=== PATIENT | female | born 1975 | race Caucasian/White ===

== ENCOUNTER 2024-07-26 04:04 | Emergency (ER) | payer BC, SELFPAY ==
[2024-07-26] VITALS (10 sets, daily range): BP systolic 102–145; BP diastolic 65–87; BMI 26.6
[2024-07-26 04:36] LABS: % Basophils 0.6 % (0-2); % Eosinophils 1.6 % (0-6); % Lymphocytes 36.8 % (20.5-51.1); % Monocytes 6.2 % (1.7-9.3); % Neutrophils 54.8 % (42.2-75.2); Absolute Eosinophils 0.1 10^3/uL (0-0.7); Absolute Lymphocytes 2.6 10^3/uL (1.2-3.4); Absolute Monocytes 0.4 10^3/uL (0.1-0.6); Absolute Neutrophils 3.9 10^3/uL (1.4-6.5); Hematocrit 39.5 % (37.0-47.0); Hemoglobin 13.6 g/dL (12.0-16.0); Mean Corp Hgb Conc. 34.4 g/dL (33.0-37.0); Mean Corpuscular Hgb 31.6 pg (27.0-31.0); Mean Corpuscular Volume 91.9 fL (81.0-99.0); Mean Platelet Volume 10.4 fL (7.4-10.4); Nucleated Red Blood Cells % 0 %; Platelet Count 231 10^3/uL (130-400); Red Cell Dist. Width 13.1 % (11.5-14.5); White Blood Cell Count 7.1 10^3/uL (4.8-10.8)
[2024-07-26 04:38] LABS: HCG, Serum Qualitative Screen Negative
[2024-07-26 04:43] LABS: ALT (SGPT) 27 U/L (0-35); AST (SGOT) 19 U/L (14-36); Albumin 3.8 g/dl (3.5-5.0); Alkaline Phosphatase 59 U/L (38-126); Blood Urea Nitrogen 16 mg/dl (7-17); Calcium 9.7 mg/dl (8.4-10.2); Carbon Dioxide 29 mmol/L (22-30); Chloride 105 mmol/L (98-107); Estimated Creatinine Clearance 75 ml/min; Glucose 150 mg/dl (70-99); Potassium 4.3 mmol/L (3.5-5.1); Sodium 141 mmol/L (135-145); Total Bilirubin 0.5 mg/dl (0.2-1.3); Total Protein 6.5 g/dl (6.3-8.2); eGFR > 60.00
[2024-07-26 04:55] LABS: Troponin I < 0.012 ng/ml
--- NOTE | 2024-07-26 05:01 | ED.GENMED ---
History of Present Illness
<Connie Tinajero, DO - Last Filed: 07/28/24 07:42>
General
Chief Complaint: Chest Pain
Source: patient and ambulance crew
Exam Limitations: none
Time Seen by Provider: 07/26/24 04:11
Nursing documentation reviewed up to this point in time: agreed with
History of Present Illness
History of Present Illness:
This is a 48-year-old woman with history of hypertension, hyperlipidemia, history of fibromuscular dysplasia with history of non-STEMI related to scad of LAD October 2021. She also has history of right ICA aneurysm status post right ICA stent May
2022. She has history of anxiety, posttraumatic stress disorder status post scad and history of vasospastic angina and admits to frequent episodes of chest pain thought to be related to vasospastic angina which overall has improved with initiation
of Imdur as well as amlodipine.
She follows with multiple specialists at [facility].
She states her angina episodes generally occur at nighttime, generally resolve with her usual evening dose of Imdur but tonight she had mild chest discomfort just prior to taking her Imdur that initially improved but then woke her from sleep around
2:30 AM associated with diaphoresis. She took 1 sublingual nitroglycerin and after calling 911 was recommended to take 324 mg of chewable aspirin. Initially nitro was not effective but aspirin was effective in improving chest pain.
She does admit to similar frequent chest pain, substernal that radiates to her left arm, occasionally to the left side of her neck, occasionally with diaphoresis and shortness of breath. Chest pain generally lasts around 5 minutes and then
resolves. She states with her episodes of vasospastic angina, she has noted ST elevation which then promptly normalizes with resolution of pain. Chest pain episodes can occurred nightly for several days in a row versus more usually once every 1 to
2 weeks.
She is maintained on Imdur 120 mg nightly.
Also maintained on amlodipine 5 mg daily, low-dose aspirin, atorvastatin 10 mg, clonazepam 1 mg as needed, Nebivolol 5 mg daily, olmesartan 20 mg daily.
Currently chest pain-free.
Her next appointment with electrical technician instructor scheduled for next month.
Past History
<Connie Tinajero DO - Last Filed: 07/28/24 07:42>
Past History
ED Past Medical History: CAD (Scad with non-STEMI October 2021), HTN, Hypercholesterolemia, [place] (Non-STEMI related to scad LAD October 2021), Psychiatric and Other (Fibromuscular dysplasia; carotid artery aneurysm)
ED Past Surgical History: Appendectomy and Other ( right carotid artery stent June 2022)
Social History
Tobacco: Non-smoker
Alcohol: None
Personal: Single
Living: alone
Employment: Employed
Family History
Family History: Other (Noncontributory)
Phy Exam
<Connie Tinajero DO - Last Filed: 07/28/24 07:42>
Physical Exam
Physical Exam:
GENERAL: 48-year-old woman appears her stated age, awake and alert, pleasant, mildly anxious but easily communicative and appears in no acute distress.
EYE: anicteric
NECK: Supple, nontender, no meningismus, no significant adenopathy.
ENT: oral mucosa is moist. No rhinorrhea.
CARDIAC: Regular rhythm, bradycardic in the 40s to 50s. no murmur.
LUNGS: Clear breath sounds bilaterally, no acute respiratory distress, no wheezes/rales/rhonchi
ABDOMEN: Soft, nondistended, without focal tenderness, normoactive BS.
NEUROLOGICAL: Alert and oriented x3, no focal neuro deficits.
SKIN: Warm and dry, normal color, skin intact. No rash.
MUSCULOSKELETAL: No C/C/E. peripheral pulses are full and equal b/l. No palpable tenderness.
PSYCH: Normal and appropriate interaction.
Scores
<DO Samy Hernandez Last Filed: 07/28/24 07:42>
Heart Score for Chest Pain Patients
STEMI patient?: No
History: Moderately Suspicious
ECG: Normal
Age: >45 - <65 years
Risk Factors: >/= 3 Risk Factors or History of CAD
Troponin: >/= 3 x Normal Limit
Heart Score for Chest Pain Patients: 6
Heart Score Risk: 20.3% MACE over next 6 weeks
<Guido Fuchs MD - Last Filed: 07/26/24 12:01>
Heart Score for Chest Pain Patients
Heart Score for Chest Pain Patients: 6
Heart Score Risk: 20.3% MACE over next 6 weeks
Course
<Connie Tinajero DO - Last Filed: 07/28/24 07:42>
Orders/Labs/Results
Orders:
Orders
07/26/24
Electrocardiogram (*1) Stat
Reason for Study: Chest Pain
Comment: DONE
07/26/24 04:10
Electrocardiogram (*1) Urgent
Reason for Study: Chest Pain
Cardiac Monitoring- Treatment ONCE
EKG- Treatment ONCE
IV Insert/Care/Rem.- Treatment PRN
Test Result ONCE
O2 Therapy [RESP] Urgent
Titrate/Wean O2 to maintain O2 sat greater than (%): 90
Special Instructions: Maintain sats >/=90%
Pulse Ox/spot Check [RESP] Urgent
Quantity: 1
Special Instructions: ON ROOM AIR
07/26/24 04:19
Complete Blood Count/With Diff Urgent
Comprehensive Metabolic Panel Urgent
HCG, Serum Qualitative Screen Urgent
Comment: Notify provider if positive test present
Troponin I Urgent
07/26/24 05:04
Electrocardiogram (*1) Urgent
Reason for Study: Chest Pain
EKG- Treatment ONCE
07/26/24 05:10
Nitroglycerin Ointment [Nitro-Bid] 1 inch .ROUTE .STK-MED ONE
07/26/24 05:12
Nitroglycerin Ointment [Nitro-Bid] 1 inch TOPICAL NOW STA
07/26/24 06:08
PTT Urgent
Troponin I Urgent
07/26/24 07:12
EKG- Treatment ONCE
07/26/24 08:00
ECG [Electrocardiogram (*1)] Urgent
Reason for Study: Chest Pain
07/26/24 08:09
Troponin I Urgent
07/26/24 08:21
Echo 2D MMode Color/Doppler Urgent
Reason for Study: CP, h/o SCAD
Abnormal Lab Results
07/26/24 07/26/24 07/26/24
04:19 06:08 08:09
MCH 31.6 H pg
(27.0-31.0)
Glucose 150 H mg/dl
(70-99)
Troponin I 0.082 H* D ng/ml 0.075 H* ng/ml
07/26/24 04:19
07/26/24 04:19
Vital Signs
Initial and Last Documented VS:
Initial Vital Signs
BP
124/81
07/26/24 04:06
Last Documented Vital Signs
Temp Pulse Resp BP Pulse Ox
97.6 F 53 18 112/81 97
07/26/24 04:11 07/26/24 12:00 07/26/24 12:00 07/26/24 12:00 07/26/24 12:00
<Guido Fuchs MD - Last Filed: 07/26/24 12:01>
Orders/Labs/Results
Orders:
Orders
07/26/24
Electrocardiogram (*1) Stat
Reason for Study: Chest Pain
Comment: DONE
07/26/24 04:10
Electrocardiogram (*1) Urgent
Reason for Study: Chest Pain
Cardiac Monitoring- Treatment ONCE
EKG- Treatment ONCE
IV Insert/Care/Rem.- Treatment PRN
Test Result ONCE
O2 Therapy [RESP] Urgent
Titrate/Wean O2 to maintain O2 sat greater than (%): 90
Special Instructions: Maintain sats >/=90%
Pulse Ox/spot Check [RESP] Urgent
Quantity: 1
Special Instructions: ON ROOM AIR
07/26/24 04:19
Complete Blood Count/With Diff Urgent
Comprehensive Metabolic Panel Urgent
HCG, Serum Qualitative Screen Urgent
Comment: Notify provider if positive test present
Troponin I Urgent
07/26/24 05:04
Electrocardiogram (*1) Urgent
Reason for Study: Chest Pain
EKG- Treatment ONCE
07/26/24 05:10
Nitroglycerin Ointment [Nitro-Bid] 1 inch .ROUTE .STK-MED ONE
07/26/24 05:12
Nitroglycerin Ointment [Nitro-Bid] 1 inch TOPICAL NOW STA
07/26/24 06:08
PTT Urgent
Troponin I Urgent
07/26/24 07:12
EKG- Treatment ONCE
07/26/24 08:00
ECG [Electrocardiogram (*1)] Urgent
Reason for Study: Chest Pain
07/26/24 08:09
Troponin I Urgent
07/26/24 08:21
Echo 2D MMode Color/Doppler Urgent
Reason for Study: CP, h/o SCAD
Abnormal Lab Results
07/26/24 07/26/24 07/26/24
04:19 06:08 08:09
MCH 31.6 H pg
(27.0-31.0)
Glucose 150 H mg/dl
(70-99)
Troponin I 0.082 H* D ng/ml 0.075 H* ng/ml
07/26/24 04:19
07/26/24 04:19
Vital Signs
Initial and Last Documented VS:
Initial Vital Signs
BP
124/81
07/26/24 04:06
Last Documented Vital Signs
Temp Pulse Resp BP Pulse Ox
97.6 F 53 18 112/81 97
07/26/24 04:11 07/26/24 12:00 07/26/24 12:00 07/26/24 12:00 07/26/24 12:00
<DO Samy Hernandez Last Filed: 07/28/24 07:42>
MDM/Problems Addressed
Differential Diagnosis Includes:
Concern for ACS, recurrent SCAD, recurrent coronary vasospasm. Other consideration is GERD, musculoskeletal chest pain, pneumonia, dissection.
Prehospital EKG shows sinus bradycardia otherwise unremarkable. No ST-T wave abnormalities and EKG upon arrival shows sinus bradycardia otherwise unremarkable.
Labs are pending.
Will continue to monitor for return of chest pain.
Will plan to trend troponin.
Chronic conditions affecting care: HTN and CAD
<DO Samy Hernandez Last Filed: 07/28/24 07:42>
*Pulse Oximetry
Patient hypoxic: no
*EKG
Interpreted by ED Provider?: Yes
Interpretation: normal
Comparison EKG: no comparison EKG present
Rate: bradycardiac
Rhythm: sinus
[place]: normal axis
Interval: normal interval
QRS Pattern: normal QRS
Ischemia: no ischemia
*Farm[employer] [place] Interpretation
Rate: bradycardiac
Interpretation: normal
Rhythm: sinus
*Critical Care Note
Total Time (30-74mins, 75-104mins- exclusive of procedures): Not Applicable
<DO Samy Hernandez Last Filed: 07/28/24 07:42>
Update Note
Update Note:
05:10
Patient had brief return of substernal chest pain radiating to her left arm, left neck with prompt EKG during episode of chest pain showing mild ST segment elevation in V3 with subtle flipped T waves aVL. Chest pain resolved in less than 5 minutes
and repeat EKG shows complete normalization of ST changes.
She remains hemodynamically stable. Systolic blood pressure 120 which patient states is her baseline.
Sinus bradycardia and 40s to 50s persists which patient again states is her baseline.
Thus far labs are unremarkable with negative troponin.
Will add an inch Nitropaste and plan to recheck troponin at 6 AM will then plan to contact cardiology.
If chest pain recurs will consider IV nitro and IV heparin.
<Guido Fuchs MD - Last Filed: 07/26/24 12:01>
Update Note
Update Note:
05:10
Patient had brief return of substernal chest pain radiating to her left arm, left neck with prompt EKG during episode of chest pain showing mild ST segment elevation in V3 with subtle flipped T waves aVL. Chest pain resolved in less than 5 minutes
and repeat EKG shows complete normalization of ST changes.
She remains hemodynamically stable. Systolic blood pressure 120 which patient states is her baseline.
Sinus bradycardia and 40s to 50s persists which patient again states is her baseline.
Thus far labs are unremarkable with negative troponin.
Will add an inch Nitropaste and plan to recheck troponin at 6 AM will then plan to contact cardiology.
If chest pain recurs will consider IV nitro and IV heparin.
1200... Cardiology called. Cleared for discharge. Troponins not trending upward. Echocardiogram stable per cardiology. They contacted her electrical technician instructor and arrange close follow-up
ED Attending Note
<Connie Tinajero DO - Last Filed: 07/28/24 07:42>
-
Portions of this chart may have been created with voice recognition software.� Occasional wrong word or��sound alike� substitutions may have occurred due to the inherent limitations of voice recognition software.
Discharge Plan
Departure
Patient Disposition: Home (Routine Discharge)
Date of Disposition: 07/26/24
Time of Disposition: 12:00
Patient with high blood pressure during this ER visit?: Yes
Discharge Problem:
ACS (acute coronary syndrome)
Instructions: Chest Pain NON-DHP Lamp Shade Assembler Follow Up, BLOOD PRESSURE
Prescriptions:
No Action
atorvastatin [Lipitor] 10 mg Tablet
10 mg PO HS
clonazepam 1 mg Tablet
1 mg PO HS
amlodipine 5 mg Tablet
5 mg PO DAILY
isosorbide mononitrate [Imdur] 120 mg Tablet Extended Release 24 Hr
120 mg PO HS
nitroglycerin 0.4 mg Tablet, Sublingual
0.4 mg SUBLINGUAL [id number] PRN (Reason: Chest pain)
olmesartan 20 mg Tablet
20 mg PO DAILY
nebivolol 5 mg Tablet
5 mg PO DAILY
polyethylene glycol 3350 [Miralax] 17 gram Powder In Packet
17 g PO DAILY
aspirin 81 mg Tablet,Delayed Release (Dr/Ec)
81 mg PO DAILY
Referrals:
UNKNOWN - PT DOES,NOT KNOW [Family Provider] -
Activity Restrictions/Additional Instructions:
Follow-up closely per your electrical technician instructor. They have arranged follow-up for next week.
Return immediately with any recurring unusual spells
Interventions
Interventions:
*Risk Screen - Suicide Last Done: 07/26/24 04:11
*General Assessment Last Done: 07/26/24 04:11
*Neglect/Abuse Screening Last Done: 07/26/24 04:11
*ED- Fall Risk Assessment Last Done: 07/26/24 04:24
*ED COVID-19 Vaccine History Last Done: 07/26/24 04:24
*Nursing Disposition Last Done: 07/26/24 12:05
ED- Cardiac Assessment Last Done: 07/26/24 07:16
Discharge Date and Time
Discharge Date/Time: 07/26/24 12:10
Print Language: MOHAWK
[2024-07-26] MEDS: NITRO-BID 1 INCH TOPICAL (05:13)
[2024-07-26 06:36] LABS: APTT 28.7 Sec (23.4-35.0)
[2024-07-26 06:51] LABS: Troponin I 0.082 ng/ml
--- NOTE | 2024-07-26 07:42 | CON.CAR ---
Addendum entered and electronically signed by Major Barber MD 07/26/24 11:41:
I saw and examined the patient.
The Tire Retreader's note was reviewed and I agree with the note.
Comment:
GEN: No distress, awake, Ox3
HEENT: supple, anicteric, mmm
LUNGS: CTA, no wheezes/rales
CV: Reg, S1/S2, no murmur
ABD: soft, BS+, NT/ND
EXT: No edema
NEURO: Gross non-focal
SKIN: No rash
PLan:
48-year-old female with past medical history of fibromuscular dysplasia, carotid stent 2022, non-STEMI due to scad in 2021 presents with chest pains. The patient missed her Imdur dose last night and woke up the middle night with severe chest
tightness. The symptoms were consistent with her usual vasospasm. She presented to the emergency room and pain resolved with aspirin and nitroglycerin. Peak troponin was 0.082. Repeat troponin was 0.07. She is currently pain-free.
Echocardiogram today with preserved LVEF, no wall motion abnormalities and no significant valve disease.
I discussed her case with her primary airbrush artist technical at the [facility] Dr. Schmidt. The symptoms are consistent with her usual vasospasm. We agreed to treat her conservatively for now. With a normal echo and stable troponins she will
be stable for discharge today. Continue Imdur 120 mg daily, aspirin, atorvastatin, amlodipine, Nebivolol, and sublingual nitroglycerin as needed.
She will follow-up [facility] next week. I advised her and her family to return to the emergency room if symptoms worsen.
Original Note:
Consultation
Consultation Request
Date/Time Consultation Performed: 07/26/24
Requesting Provider: Dr. Tinajero
Performing Provider: Isa Toussaint PA-C for Dr. Barber
Reason for Consultation: CP
Medical History
-
Chief Complaint: CP
History of Present Illness:
Patient is a 48 yo F with PMH of HTN, HLD, anxiety, PTSD, FMD with NSTEMI secondary to SCAD 10/2021, LOS aneurysm s/p ICA stent 05/2022. She has frequent episodes of chest discomfort which are felt to be related to vasospastic angina. She is
chronically on norvasc and imdur which she states control her symptoms. She recently traveled to [place] over the weekend for a concert. She states she has been more fatigued since that time. States that last evening she forgot to take her imdur. She
woke up at 2:30AM with chest discomfort, diaphoresis, nausea. She took a SL nitro x1 which typically improves her pain however improved but symptoms did not resolve. She reports at some point she then passed out. When EMS arrived, she was given
aspirin which did improve her symptoms. She has not had recurrence of pain since nitro patch placement. Initial trop negative however repeat 0.082. Cardiology consulted for evaluation.
PMH:
FMD with NSTEMI secondary to SCAD 10/2021
Vasospastic angina
HTN
HLD
LOS aneurysm s/p ICA stent 05/2022
Anxiety/PTSD
Past Medical History
Past Medical History: Other (in HPI)
Social History
Tobacco: Non-Smoker
Alcohol: None
Living: With Family
Employment: Employed
Family History
Family History: Reviewed & Not Pertinent
Allergies / Home Medications
Allergy/AdvReac Type Severity Reaction Status Date / Time
ibuprofen Allergy Hives Verified 07/26/24 04:09
�Medication �Instructions �Recorded �Confirmed �Type
amlodipine 5 mg tablet 5 mg PO DAILY 07/26/24 07/26/24 History
aspirin 81 mg capsule 81 mg PO DAILY 07/26/24 07/26/24 History
atorvastatin 10 mg tablet (Lipitor) 10 mg PO DAILY 07/26/24 07/26/24 History
clonazepam 1 mg tablet 1 mg PO DAILY 07/26/24 07/26/24 History
isosorbide mononitrate 120 1XD 07/26/24 History
nebivolol 5 mg tablet 5 mg PO DAILY 07/26/24 07/26/24 History
nitroglycerin 0.4 mg sublingual 0.4 mg sublingual Q5M PRN Chest 07/26/24 07/26/24 History
tablet pain
olmesartan 20 mg tablet 20 mg PO DAILY 07/26/24 07/26/24 History
Review of Systems
-
History Source: Patient and Family
All other systems: Negative unless noted
Physical Exam
Vital Signs
Temp Pulse Resp BP Pulse Ox
97.6 F 56 15 145/87 98
07/26/24 04:11 07/26/24 07:15 07/26/24 07:15 07/26/24 07:05 07/26/24 07:15
Lab Results
07/26/24 04:19
07/26/24 04:19
Troponin I 0.082 ng/ml H* D 07/26/24 06:08
Physical Exam
General: No Apparent Distress and Comfortable
HEENT: Normocephalic, Anicteric and Moist Mucous Membranes
Respiratory: Clear and Non Labored Respirations
Cardiac: S1/S2 and Regular Rhythm
GI: Soft, Non Tender, Non Distended and Normal Bowel Sounds
Musculoskeletal: No Clubbing, No Cyanosis and No Edema
Skin: Warm and Dry
Neuro: AO x 3
Impression / Plan
-
Primary Non Destructive Evaluation Specialist: Dr. Adeline Price (office #[phone])
Assessment:
Presentation with CP
Elevated troponin
FMD with NSTEMI secondary to SCAD 10/2021
Vasospastic angina
HTN
HLD
LOS aneurysm s/p ICA stent 05/2022
Anxiety/PTSD
Plan:
- Patient presents with chest pain, more severe than her typical vasospastic angina. She subsequently realized she had forgotten to take her p.m. Imdur dose last evening.
- Chest pain now resolved
- Currently on Nitropatch
- She was noted to have some transient inferior ST elevation in setting of episode of vasospasm in ER, resolved by repeat EKG. Patient states she has history of ST elevation in setting of symptoms with normalization once symptoms improved.
- Trend troponin to peak, most recent 0.082
- Check urgent echo
- Will reach out to primary airbrush artist technical to discuss case and attempt to obtain records for review. Patient states in the past they were attempting to avoid cath as much as possible given her FMD
- Discussed with patient and parents at bedside
- Discussed with ER nursing
Data Reviewed
-
EKG: Tracing Personally Visualized and interpreted
Labs: Labs Reviewed by me
Old Records: Reviewed
[2024-07-26 08:42] LABS: Troponin I 0.075 ng/ml
== END 2024-07-26 12:10 | disposition home or self-care (01) ==
LOC: EMR 04:04
PROVIDERS: EMERGENCY PHYSICIAN Emergency Medicine
DX: I24.9 Acute ischemic heart disease, unspecified (principal); I10 Essential (primary) hypertension; E78.00 Pure hypercholesterolemia, unspecified; F41.9 Anxiety disorder, unspecified; F43.10 Post-traumatic stress disorder, unspecified; I25.2 Old myocardial infarction; I25.10 Atherosclerotic heart disease of native coronary artery without angina pectoris; Z79.899 Other long term (current) drug therapy; Z90.49 Acquired absence of other specified parts of digestive tract
CPT/HCPCS: 99283; 80053; 84484; 84703; 85025; 85730; 93005; 93306